=== PATIENT | male | born 1995 | race African-American/Black ===

== ENCOUNTER 2018-07-25 22:31 | Emergency (ER) | payer OTHER ==
[2018-07-25 22:39] VITALS: BP 116/43; PULSE 57; TEMP 97.7; BMI 25.0
--- NOTE | 2018-07-25 23:02 | PDOC ---
History of Present Illness - General Chief Complaint: Chest Pain Stated Complaint: CHEST PAIN Time Seen by Provider: 07/25/18 23:02 Past History - Past Medical History Allergies/Adverse Reactions: Allergies Allergy/AdvReac Type Severity Reaction Status Date / Time No Known Allergies Allergy Verified 07/25/18 22:37 COPD: No - Suicide/Smoking/Psychosocial Hx Smoking History: Never smoked *Physical Exam - Vital Signs Last Vital Signs Temp Pulse Resp BP Pulse Ox 97.7 F 57 L 18 116/43 L 99 07/25/18 22:37 07/25/18 22:37 07/25/18 22:37 07/25/18 22:37 07/25/18 22:37 Moderate Sedation - Procedure Monitoring Vital Signs: Procedure Monitoring Vital Signs Temperature 97.7 F 07/25/18 22:37 Pulse Rate 57 L 07/25/18 22:37 Respiratory Rate 18 07/25/18 22:37 Blood Pressure 116/43 L 07/25/18 22:37 O2 Sat by Pulse Oximetry (%) 99 07/25/18 22:37 ED Treatment Course - LABORATORY CBC & Chemistry Diagram: 07/26/18 01:00 07/26/18 01:00 *DC/Admit/Observation/Transfer Diagnosis at time of Disposition: Atypical chest pain - Discharge Dispostion Disposition: HOME Condition at time of disposition: Stable Decision to Admit order: No - Referrals Referrals: Rosemarie Rivas MD [Primary Care Provider] - Andrew Dunn MD [Staff Physician] - - Patient Instructions Printed Discharge Instructions: DI for Atypical Chest Pain - Post Discharge Activity
[2018-07-26 01:35] LABS: BASO % 0.6 % (0-2.0); EOS % 1.6 % (0-4.5); HEMATOCRIT 43.4 % (35.4-49); HEMOGLOBIN 14.7 GM/dL (11.7-16.9); LYMPH % 35.4 % (8-40); MCH 28.5 pg (25.7-33.7); MCHC 33.8 g/dl (32.0-35.9); MEAN CELL VOLUME 84.3 fl (80-96); MEAN PLT VOLUME 7.9 fl (7.5-11.1); MONO % 12.6 % (3.8-10.2); NEUT % 49.8 % (42.8-82.8); PLATELET COUNT 200 K/MM3 (134-434); RBC 5.15 M/mm3 (4.00-5.60); RDW 13.4 % (11.9-15.9)
[2018-07-26 02:10] LABS: ALBUMIN 3.8 g/dl (3.4-5.0); ALK PHOS 71 U/L (45-117); ANION GAP 4 MMOL/L (8-16); BILIRUBIN,TOTAL 0.7 mg/dL (0.2-1); BLOOD UREA NITROGEN 17 mg/dL (7-18); CALCIUM 8.7 mg/dL (8.5-10.1); CHLORIDE 106 mmol/L (98-107); CO2 31 mmol/L (21-32); CREATININE 1.3 mg/dL (0.55-1.3); GLUCOSE,RANDOM 82 mg/dL (74-106); POTASSIUM 4.7 mmol/L (3.5-5.1); SGOT/AST 20 U/L (15-37); SGPT/ALT 25 U/L (13-61); SODIUM 142 mmol/L (136-145); TOT PROT 7.2 g/dl (6.4-8.2)
--- NOTE | 2018-07-26 17:12 | EKG ---
Test Reason : Blood Pressure : / mmHG Vent. Rate : 048 BPM Atrial Rate : 048 BPM P-R Int : 188 ms QRS Dur : 100 ms QT Int : 412 ms P-R-T Axes : 054 061 049 degrees QTc Int : 368 ms SINUS BRADYCARDIA ABNORMAL ECG NO PREVIOUS ECGS AVAILABLE Confirmed by MD TRUPTI, SOPHIA ([id number]) on 07/26/2018 5:12:25 PM Referred By: Confirmed By:SOPHIA LYLES MD
== END 2018-07-26 02:29 | disposition home or self-care (01) ==
LOC: JER 22:31
DX: R07.89 Other chest pain (principal)
CPT/HCPCS: 36415; 71046-TC-FY; 80053; 82550; 82553; 84484; 85025; 93005; 93010; 99283-25